=== PATIENT | female | born 1960 | race Caucasian/White ===

== ENCOUNTER 2019-06-15 05:57 | Inpatient (IN) ==
[2019-06-04 13:48] LABS: Basophils % 0.7 % (0.0-0.8); Eosinophils # 0.2 10*3/uL (0.0-0.87); Eosinophils % 2.8 % (0.00-10.9); Hematocrit 43.2 VOL% (35.7-47.0); Hemoglobin 13.9 GM/DL (12.0-16.0); Immature Granulocytes % 0.5 %; Immature Granulocytes Absolute 0.03 #; Lymphocytes # 1.6 10*3/uL (1.4-4.0); Mean Corpuscular HGB Conc 32.2 GM/DL (32-36); Mean Corpuscular Volume 87.8 FL (87-102); Mean Platelet Volume 11.3 FL (9.6-12.0); Monocytes % 8.8 % (1.7-12.7); Neutrophils % 61.2 % (38.7-73.9); Platelet Count 212 T/CUMM (130-400); Red Blood Count 4.92 MC/CUMM (3.8-5.5); Red Cell Distribution Width 13.7 % (9.3-17.3)
[2019-06-04 14:19] LABS: Apearance,Urine CLOUDY (Clear); Bacteria,Urine Occasional /HPF (Few); Bilirubin,Urine Negative (Negative); Blood, Urine Small mg/dL (Negative); Glucose,Urine (UA) Negative (Negative); Ketones,Urine Negative (Negative); Mucus,Urine Occasional /LPF (Occasional); Nitrite,Urine Negative (Negative); Protein,Urine Negative; RBC,Urine 54 /HPF (0-4); Squamous Epithelial Cell,Urine Occasional /HPF (0-10); Urine Color Amber (Yellow); Urine Specific Gravity 1.019 (1.001-1.035); Urine Urobilinogen < 2.0 EU/DL (0.2-1.0); WBC,Urine 610 /HPF (0-6)
[~2019-06-15 05:57] MED LIST: TOBRAMYCIN 80 MG/2 ML VIAL ONE
[2019-06-15] MEDS ORDERED: LORazepam 1 MG TABLET ONE (06:19)
[2019-06-15] MEDS ORDERED: FAMOTIDINE 20 MG TABLET ONE (06:19)
[2019-06-15] MEDS ORDERED: LORazepam 1 MG TABLET PO ONE (06:21)
[2019-06-15] MEDS ORDERED: FAMOTIDINE 20 MG TABLET PO ONE (06:21)
[2019-06-15] MEDS ORDERED: TOBRAMYCIN INJ 80 MG in SODIUM CHLORIDE 0.9% 100 ML IV ONE (06:30)
[2019-06-15] MEDS: LACTATED RINGERS 1,000 ML IV SCH (06:46)
[2019-06-15] MEDS ORDERED: NALOXONE 0.4 MG/ML VIAL IV PRN (12:27)
[2019-06-15] MEDS ORDERED: ONDANSETRON 4 MG/2 ML VIAL IV PRN ×2 (12:27→13:04)
[2019-06-15] MEDS ORDERED: LIDOCAINE 2% 5 ML VIAL ONE (12:57)
[2019-06-15] MEDS ORDERED: propofoL 200 MG/20 ML VIAL IV ONE (12:57)
[2019-06-15] MEDS ORDERED: SEVOFLURANE 1 UNIT/15 MINUTE INH ONE (12:57)
[2019-06-15] MEDS ORDERED: fentaNYL 100 MCG/2 ML VIAL ONE (12:58)
[2019-06-15] MEDS ORDERED: ONDANSETRON 4 MG/2 ML VIAL ONE ×2 (12:58→13:09)
[2019-06-15] MEDS ORDERED: ePHEDrine 50 MG/ML AMP ONE (12:58)
[2019-06-15] MEDS ORDERED: SUCCINYLCHOLINE 200 MG/10 ML VIAL ONE (12:58)
[2019-06-15] MEDS ORDERED: ROCURONIUM 100 MG/10 ML VIAL IV ONE (12:58)
[2019-06-15] MEDS ORDERED: LACTATED RINGERS 1,000 ML IV ONE (12:58)
[2019-06-15] MEDS ORDERED: HYDROmorphone 2 MG/1 ML VIAL IV PRN (13:04)
[2019-06-15 13:05] LABS: Apearance,Urine Slightly Hazy (Clear); Bilirubin,Urine Negative (Negative); Blood, Urine Large mg/dL (Negative); Glucose,Urine (UA) Negative (Negative); Ketones,Urine Negative (Negative); Mucus,Urine Occasional /LPF (Occasional); Nitrite,Urine Negative (Negative); Protein,Urine Negative; RBC,Urine 22 /HPF (0-4); Squamous Epithelial Cell,Urine Occasional /HPF (0-10); Urine Color Yellow (Yellow); Urine Specific Gravity 1.011 (1.001-1.035); Urine Urobilinogen < 2.0 EU/DL (0.2-1.0); WBC,Urine 82 /HPF (0-6)
[2019-06-15] MEDS ORDERED: HYDROmorphone 2 MG/1 ML VIAL ONE (13:09)
[2019-06-15] MEDS ORDERED: HYDROmorphone PCA 30 MG/30 ML SYRINGE IV ONE (13:18)
[2019-06-15] MEDS: HYDROmorphone PCA 30 MG/30 ML SYRINGE IV SCH (13:25)
[2019-06-15] MEDS: DEXTROSE 5% NACL 0.45% 1,000 ML IV SCH (14:34)
[2019-06-15] MEDS: ACETAMINOPHEN 500 MG TABLET PO PRN (19:20)
[2019-06-15] MEDS: TOBRAMYCIN INJ 80 MG in SODIUM CHLORIDE 0.9% 100 ML IV SCH (21:07)
[2019-06-16] MEDS: DEXTROSE 5% NACL 0.45% 1,000 ML IV SCH ×2 (01:18→11:04)
[2019-06-16] MEDS: TOBRAMYCIN INJ 80 MG in SODIUM CHLORIDE 0.9% 100 ML IV SCH ×3 (04:32→21:52)
[2019-06-16] MEDS: LACTATED RINGERS 1,000 ML IV SCH (06:06)
[2019-06-16 06:38] LABS: Calcium 8.4 MG/DL (8.5-10.1)
[2019-06-16 06:49] LABS: Basophils % 0.2 % (0.0-0.8); Eosinophils % 0.3 % (0.00-10.9); Hematocrit 37.4 VOL% (35.7-47.0); Hemoglobin 11.5 GM/DL (12.0-16.0); Immature Granulocytes % 0.6 %; Immature Granulocytes Absolute 0.06 #; Lymphocytes # 0.8 10*3/uL (1.4-4.0); Lymphocytes % 7.5 % (21.3-54.2); Mean Corpuscular HGB Conc 30.7 GM/DL (32-36); Mean Corpuscular Volume 91.9 FL (87-102); Mean Platelet Volume 11.5 FL (9.6-12.0); Monocytes % 5.3 % (1.7-12.7); Neutrophils % 86.1 % (38.7-73.9); Platelet Count 147 T/CUMM (130-400); Red Blood Count 4.07 MC/CUMM (3.8-5.5); Red Cell Distribution Width 14.4 % (9.3-17.3); White Blood Count 10.6 T/CUMM (4-12)
[2019-06-16] MEDS: ACETAMINOPHEN 500 MG TABLET PO PRN (08:40)
[2019-06-16] MEDS ORDERED: CYANOCOBALAMIN 1000 MCG/1 ML VIAL IM SCH (10:00)
[2019-06-16] MEDS: METOPROLOL TARTRATE 25 MG TABLET PO SCH ×2 (10:26→21:51)
[2019-06-16] MEDS: cefTRIAXone 1,000 MG in SYRINGE 1 EACH IV SCH (10:26)
[2019-06-16] MEDS ORDERED: CYANOCOBALAMIN 1000 MCG/1 ML VIAL SUBCUT SCH (12:00)
[2019-06-16] MEDS: ALBUTEROL/IPRATROPIUM 3 ML NEB RESP TX SCH (21:28)
[2019-06-17] MEDS: DEXTROSE 5% NACL 0.45% 1,000 ML IV SCH ×2 (01:53→17:15)
[2019-06-17] MEDS: ALBUTEROL/IPRATROPIUM 3 ML NEB RESP TX SCH ×4 (02:31→18:59)
[2019-06-17] MEDS: TOBRAMYCIN INJ 80 MG in SODIUM CHLORIDE 0.9% 100 ML IV SCH (05:08)
[2019-06-17] MEDS: LEVOTHYROXINE 100 MCG TABLET PO SCH (06:45)
[2019-06-17] MEDS: HYDROmorphone PCA 30 MG/30 ML SYRINGE IV SCH (08:18)
[2019-06-17] MEDS: LACTATED RINGERS 1,000 ML IV SCH (08:19)
[2019-06-17] MEDS: CHOLECALCIFEROL 5,000 UNIT TABLET PO SCH (08:57)
[2019-06-17] MEDS ORDERED: oxyCODONE/ACETAMINOPHEN 5-325 MG TABLET PO PRN ×2 (08:58→09:03)
[2019-06-17] MEDS: cefTRIAXone 1,000 MG in SYRINGE 1 EACH IV SCH (08:58)
[2019-06-17] MEDS: METOPROLOL TARTRATE 25 MG TABLET PO SCH ×2 (09:00→17:31)
[2019-06-18] MEDS: ALBUTEROL/IPRATROPIUM 3 ML NEB RESP TX SCH ×2 (00:55→07:24)
[2019-06-18] MEDS: LEVOTHYROXINE 100 MCG TABLET PO SCH (05:45)
[2019-06-18] MEDS: DEXTROSE 5% NACL 0.45% 1,000 ML IV SCH (05:47)
[2019-06-18 07:33] VITALS: BP 140/69
[2019-06-18] MEDS: CHOLECALCIFEROL 5,000 UNIT TABLET PO SCH (08:33)
[2019-06-18] MEDS: cefTRIAXone 1,000 MG in SYRINGE 1 EACH IV SCH (08:33)
[2019-06-18] MEDS: METOPROLOL TARTRATE 25 MG TABLET PO SCH (08:33)
[2019-06-23 22:51] LABS: Stone Source Kidney
== END 2019-06-18 11:56 | disposition home or self-care (01) | DRG 661 ==
LOC: N.OR 05:57 → N.SDSINP 05:58 → N.5E 14:20
PROVIDERS: ADMIT Urology; ATTEND Urology